=== PATIENT | female | born 1990 ===

== ENCOUNTER 2020-10-07 21:47 | Inpatient (IN) | payer MEDICAID ==
[2020-10-07] MEDS ORDERED: Carboprost Tromethamine 250 MCG/1 ML Amp IM PRN (22:26)
[2020-10-07] MEDS ORDERED: Lidocaine 1% 50 ML MDV INJECT PRN (22:26)
[2020-10-07] MEDS ORDERED: Tranexamic Acid 1,000 MG in Sodium Chloride 0.9% 100 ML IV PRN (22:26)
[2020-10-07] MEDS ORDERED: Sodium Chloride 0.9% 10 ML Syringe FLUSH PRN (22:26)
[2020-10-07] MEDS ORDERED: Sodium Chloride 0.9% 2.5 ML Syringe FLUSH PRN (22:26)
[2020-10-07] MEDS ORDERED: Misoprostol 200 MCG Tab PO PRN (22:26)
[2020-10-07] MEDS ORDERED: Water For Irrigation,Sterile 1,000 ML Container IRR PRN (22:26)
[2020-10-07] MEDS ORDERED: Sodium Chloride 0.9% 10 ML SDV IV PRN (22:26)
[2020-10-07] MEDS ORDERED: Nalbuphine 10 MG/1 ML Vial IVPUSH PRN (22:26)
[2020-10-07] MEDS ORDERED: Butorphanol 1 MG/ML SDV IVPUSH PRN (22:26)
[2020-10-07] MEDS ORDERED: Methylergonovine 0.2 MG/1 ML Amp IM PRN (22:26)
[2020-10-07] MEDS ORDERED: Oxytocin/0.9 % Sodium Chloride 30 UNIT/500 ML BAG IV SCH (22:30)
[2020-10-07] MEDS ORDERED: Lactated Ringers 1,000 ML IV SCH (22:30)
--- NOTE | 2020-10-08 05:36 | PCM.LDHP ---
L&D History of Present Illness - General Date of Service: 10/08/20 Admit Problem/Dx: Patient Status Order with Admit Dx/Problem 10/07/20 21:52 Patient Status [ADT] Routine 10/07/20 22:26 Patient Status [ADT] Routine Admission Diagnosis/Problem Admission Diagnosis/Problem Source of Information: Patient History Limitations: Reports: No Limitations - History of Present Illness Improves with: Reports: None Worsens with: Reports: None Associated Symptoms: Reports: N - Related Data Allergies/Adverse Reactions: Allergies Allergy/AdvReac Type Severity Reaction Status Date / Time Sulfa (Sulfonamide Allergy Rash Verified 10/07/20 21:50 Antibiotics) Past Medical History 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 (See Below) Other OB/BYN History: abnormal pap 09/2019, colposcopy 09/2019, leep 11/2019 - Infectious Disease History Infectious Disease History: Reports: Novel Coronavirus - Past Surgical History HEENT Surgical History: Reports: Oral Surgery Social & Family History - Family History Family Medical History: No Pertinent Family History - Tobacco Use Tobacco Use Status *Q: Never Tobacco User Second Hand Smoke Exposure: No - Recreational Drug Use Recreational Drug Use: No H&P Review of Systems - Review of Systems: Review Of Systems: See Below General: Reports: No Symptoms HEENT: Reports: No Symptoms Pulmonary: Reports: No Symptoms Cardiovascular: Reports: No Symptoms Gastrointestinal: Reports: No Symptoms Genitourinary: Reports: No Symptoms Musculoskeletal: Reports: No Symptoms Skin: Reports: No Symptoms Psychiatric: Reports: No Symptoms Neurological: Reports: No Symptoms Hematologic/Lymphatic: Reports: No Symptoms Immunologic: Reports: No Symptoms L&D Exam - Exam Exam: See Below - Vital Signs Weight: 79.832 kg - OB Specific Contraction Intensity: Moderate Movement: Active Heart Tones: Present Presentation: Vertex - Manley Score Manley Score Cervix Position: Anterior Manley Score Consistency: Soft Manley Score Effacement: >80% Manley Score Dilation: > 5 cm Manley Score 's Station: -2 Manley Score Total: 11 - Exam General: Alert, Oriented HEENT: PERRLA, Conjunctiva Clear, EACs Clear, EOMI, Hearing Intact, Mucosa Moist & [place], Nares Patent, Normal Nasal Septum, Posterior Pharynx Clear, TMs Clear Neck: Supple, Trachea Midline Lungs: Clear to Auscultation, Normal Respiratory Effort Cardiovascular: Regular Rate, Regular Rhythm GI/Abdominal Exam: Normal Bowel Sounds, Soft, Non-Tender, No Organomegaly, No Distention, No Abnormal Bruit, No Mass, Pelvis Stable Rectal Exam: Normal Exam, Normal Rectal Tone Genitourinary: Normal external exam, Normal bimanual exam, Normal speculum exam Back Exam: Normal Inspection, Full Range of Motion Extremities: Normal Inspection, Normal Range of Motion, Non-Tender, No Pedal Edema, Normal Capillary Refill Skin: Warm, Dry, Intact Neurological: Cranial Nerves Intact, Reflexes Equal Bilateral Psychiatric: Alert, Normal Affect, Normal Mood - Patient Data Lab Results Last 24 hrs: Laboratory Results - last 24 hr 10/07/20 10/07/20 Range/Units 23:00 23:00 WBC 16.78 H (4.0-11.0) K/uL RBC 4.54 (4.30-5.90) M/uL Hgb 13.9 (12.0-16.0) g/dL Hct 40.7 (36.0-46.0) % MCV 89.6 (80.0-98.0) fL MCH 30.6 (27.0-32.0) pg MCHC 34.2 (31.0-37.0) g/dL RDW Std Deviation 43.2 (28.0-62.0) fl RDW Coeff of Hoa 13 (11.0-15.0) % Plt Count 229 (150-400) K/uL MPV 11.70 (7.40-12.00) fL Nucleated RBC % 0.0 /100WBC Nucleated RBCs # 0 K/uL Blood Type A POSITIVE Antibody Screen NEGATIVE Result Diagrams: 10/07/20 23:00 Problem List Initiated/Reviewed/Updated: Yes Orders Last 24hrs: Active Orders 24 hr Category Date Time Status Patient Status [ADT] Routine ADT 10/07/20 21:52 Active Patient Status [ADT] Routine ADT 10/07/20 22:26 Active Heart Tones [RC] CONTINUOUS Care 10/07/20 22:26 Active Non Stress Test [RC] PER UNIT ROUTINE Care 10/07/20 21:52 Active Non Stress Test [RC] PER UNIT ROUTINE Care 10/07/20 22:26 Active May Shower [RC] ASDIRECTED Care 10/07/20 22:26 Active Notify Provider [RC] PRN Care 10/07/20 22:26 Active Up ad Lee Ann [RC] ASDIRECTED Care 10/07/20 21:52 Active Up ad Lee Ann [RC] ASDIRECTED Care 10/07/20 22:26 Active Vaginal Exam [RC] Click to Edit Care 10/07/20 21:52 Active Vaginal Exam [RC] PRN Care 10/07/20 22:26 Active Vital Signs [RC] PER UNIT ROUTINE Care 10/07/20 21:52 Active Vital Signs [RC] PER UNIT ROUTINE Care 10/07/20 22:26 Active RPR (SYPHILIS SERO) W/ RFLX [REF] Routine Lab 10/07/20 23:00 Received Butorphanol [Stadol] Med 10/07/20 22:26 Active 1 mg IVPUSH Q1H PRN Carboprost Tromethamine [Hemabate DS] Med 10/07/20 22:26 Active 250 mcg IM ASDIRECTED PRN Lactated Ringers [Ringers, Lactated] 1,000 ml Med 10/07/20 22:30 Active IV ASDIRECTED Lidocaine 1% [Xylocaine 1%] Med 10/07/20 22:26 Active 50 ml INJECT ONETIME PRN Methylergonovine [Methergine] Med 10/07/20 22:26 Active 0.2 mg IM ASDIRECTED PRN Nalbuphine [Nubain] Med 10/07/20 22:26 Active 10 mg IVPUSH Q1H PRN Oxytocin/0.9 % Sodium Chloride [Oxytocin 30 Unit/500 ML Med 10/07/20 22:30 Active -NS] 30 unit in 500 ml IV TITRATE Sodium Chloride 0.9% [Normal Saline] Med 10/07/20 22:26 Active 10 ml IV ASDIRECTED PRN Sodium Chloride 0.9% [Saline Flush] Med 10/07/20 22:26 Active 10 ml FLUSH ASDIRECTED PRN Sodium Chloride 0.9% [Saline Flush] Med 10/07/20 22:26 Active 2.5 ml FLUSH ASDIRECTED PRN Tranexamic Acid [Cyklokapron] 1,000 mg Med 10/07/20 22:26 Active Sodium Chloride 0.9% [Normal Saline] 100 ml IV ONETIME Water For Irrigation,Sterile [Sterile Water for Med 10/07/20 22:26 Active Irrigation] 1,000 ml IRR ASDIRECTED PRN miSOPROStoL [Cytotec] Med 10/07/20 22:26 Active 200 mcg PO ONETIME PRN Scalp Electrode [WOMSER] Per Unit Routine Oth 10/07/20 22:26 Ordered Peripheral IV Insertion Adult [OM.PC] Routine Oth 10/07/20 22:26 Ordered Resuscitation Status Routine Resus Stat 10/07/20 21:51 Ordered Medication Orders Butorphanol Tartrate (Butorphanol 1 Mg/Ml Sdv) 1 mg IVPUSH Q1H PRN PRN Reason: Pain (severe 7-10) Carboprost Tromethamine (Carboprost Tromethamine 250 Mcg/1 Ml Amp) 250 mcg IM ASDIRECTED PRN PRN Reason: Post Hemorrhage Lactated Ringer's (Ringers, Lactated) 1,000 mls @ 150 mls/hr IV ASDIRECTED CEDRICK Last Admin: 10/08/20 02:51 Dose: 150 mls/hr Documented by: VIVIANE Oxytocin/Sodium Chloride (Oxytocin 30 Unit/500 Ml-Ns) 30 unit in 500 mls @ 250 mls/hr IV TITRATE [facility] Tranexamic Acid 1,000 mg/ (Sodium Chloride) 110 mls @ 660 mls/hr IV ONETIME PRN PRN Reason: Bleeding Lidocaine HCl (Lidocaine 1% 50 Ml Mdv) 50 ml INJECT ONETIME PRN PRN Reason: Laceration repair Methylergonovine Maleate (Methylergonovine 0.2 Mg/1 Ml Amp) 0.2 mg IM ASDIRECTED PRN PRN Reason: Post Hemorrhage Misoprostol (Misoprostol 200 Mcg Tab) 200 mcg PO ONETIME PRN PRN Reason: Post Hemorrhage Nalbuphine HCl (Nalbuphine 10 Mg/1 Ml Vial) 10 mg IVPUSH Q1H PRN PRN Reason: Pain (severe 7-10) Sodium Chloride (Sodium Chloride 0.9% 10 Ml Syringe) 10 ml FLUSH ASDIRECTED PRN PRN Reason: Keep Vein Open Sodium Chloride (Sodium Chloride 0.9% 2.5 Ml Syringe) 2.5 ml FLUSH ASDIRECTED PRN PRN Reason: Keep Vein Open Sodium Chloride (Sodium Chloride 0.9% 10 Ml Sdv) 10 ml IV ASDIRECTED PRN PRN Reason: IV Use Sterile Water (Water For Irrigation,Sterile 1,000 Ml Container) 1,000 ml IRR ASDIRECTED PRN PRN Reason: delivery Assessment/Plan Comment:: Termpregnancy in active labor.
[2020-10-08] MEDS ORDERED: Benzocaine/Menthol 20%-0.5% Spray 78 GM Cannister TOP PRN (05:37)
[2020-10-08] MEDS ORDERED: Docusate Sodium 100 MG Cap PO PRN (05:37)
[2020-10-08] MEDS ORDERED: Witch Hazel Medicated Pads 40/Jar TOP PRN (05:37)
[2020-10-08] MEDS ORDERED: Lanolin 100% Cream 7 GM Tube TOP PRN (05:37)
[2020-10-08] MEDS ORDERED: oxyCODONE 5 MG Tab PO PRN (05:37)
[2020-10-08] MEDS ORDERED: Acetaminophen 500 MG Tab PO PRN ×2 (05:37)
[2020-10-08] MEDS ORDERED: Ibuprofen 400 MG Tab PO PRN (05:37)
[2020-10-08] MEDS ORDERED: Ibuprofen 800 MG Tab PO PRN (05:37)
[2020-10-08] MEDS ORDERED: Bisacodyl 10 MG Supp RECTAL PRN (05:37)
--- NOTE | 2020-10-08 11:01 | OR ---
SURGEON: Danie Umana MD DATE OF PROCEDURE: 10/08/2020 Ms. Redding is a 30-year-old patient. She is para 0000 She is 39 plus weeks. She is followed in our clinic mainly by our nurse midwifery. The patient had no care. Her diabetes screen is negative. Her GBS status is negative. She is admitted in active labor. She was 4 cm, complete, vertex, and -2 station at the time of the admission. heart rate was essentially normal and she has an intact membrane. She has continued to progress. She did not have epidural through the process of labor. Since she continued to progress, she had spontaneous rupture of membranes of clear fluid at 9 cm and then she became complete and she pushed for about 40 minutes and she was able to accomplish normal spontaneous vaginal delivery of a female fetus. score reported to be 8 and 9. The weight is not available at the time of this dictation. The placenta delivered spontaneous, complete, and intact. There was first-degree perineal laceration repaired with 3-0 Vicryl after infiltrating the area with copious amount of 1% Xylocaine. Estimated blood loss is 350 to 400 mL. The heart rate was category 1 through the entire process of labor and delivery. There was no complication in the labor and the delivery of this patient. NINFA / [id number] /[id number] MTDD
--- NOTE | 2020-10-09 08:01 | PCM.PNPP ---
- General Info Date of Service: 10/09/20 Functional Status: Reports: Pain Controlled, Tolerating Diet, Ambulating, Urinating - Review of Systems General: Reports: No Symptoms HEENT: Reports: No Symptoms Pulmonary: Reports: No Symptoms Cardiovascular: Reports: No Symptoms Gastrointestinal: Reports: No Symptoms Genitourinary: Reports: No Symptoms Musculoskeletal: Reports: No Symptoms Skin: Reports: No Symptoms Neurological: Reports: No Symptoms Psychiatric: Reports: No Symptoms - General Info Date of Service: 10/09/20 - Patient Data Vital Signs - Most Recent: Last Vital Signs Temp 97.3 F 10/09/20 04:00 Pulse 83 10/09/20 04:00 Resp 16 10/09/20 04:00 BP 103/73 10/09/20 04:00 Pulse Ox 97 10/09/20 04:00 Weight - Most Recent: 176 lb Lab Results - Last 24 Hours: Laboratory Results - last 24 hr 10/09/20 Range/Units 04:59 Hgb 11.7 L (12.0-16.0) g/dL Hct 34.9 L (36.0-46.0) % Med Orders - Current: Current Medications Acetaminophen (Acetaminophen 500 Mg Tab) 500 mg PO Q4H PRN PRN Reason: Pain (mild 1-3) Acetaminophen (Acetaminophen 500 Mg Tab) 1,000 mg PO Q4H PRN PRN Reason: Pain (mild 1-3) Benzocaine/Menthol (Benzocaine/Menthol 20%-0.5% [place] 78 Gm Cannister) 78 gm TOP ASDIRECTED PRN PRN Reason: Perineal Comfort Measure Last Admin: 10/08/20 07:56 Dose: 1 canister Documented by: Bisacodyl (Bisacodyl 10 Mg Supp) 10 mg RECTAL ONETIME PRN PRN Reason: Constipation Butorphanol Tartrate (Butorphanol 1 Mg/Ml Sdv) 1 mg IVPUSH Q1H PRN PRN Reason: Pain (severe 7-10) Carboprost Tromethamine (Carboprost Tromethamine 250 Mcg/1 Ml Amp) 250 mcg IM ASDIRECTED PRN PRN Reason: Post Hemorrhage Docusate Sodium (Docusate Sodium 100 Mg Cap) 100 mg PO Q12H PRN PRN Reason: Constipation Emollient Ointment (Lanolin 100% Cream 7 Gm Tube) 0 gm TOP ASDIRECTED PRN PRN Reason: Sore Nipples Last Admin: 10/08/20 08:58 Dose: 1 tube Documented by: Lactated Ringer's (Ringers, Lactated) 1,000 mls @ 150 mls/hr IV ASDIRECTED CEDRICK Last Admin: 10/08/20 02:51 Dose: 150 mls/hr Documented by: Oxytocin/Sodium Chloride (Oxytocin 30 Unit/500 Ml-Ns) 30 unit in 500 mls @ 250 mls/hr IV TITRATE [facility] Last Admin: 10/08/20 06:55 Dose: 250 mls/hr Documented by: Tranexamic Acid 1,000 mg/ (Sodium Chloride) 110 mls @ 660 mls/hr IV ONETIME PRN PRN Reason: Bleeding Ibuprofen (Ibuprofen 400 Mg Tab) 400 mg PO Q4H PRN PRN Reason: Pain (mild 1-3) Ibuprofen (Ibuprofen 800 Mg Tab) 800 mg PO Q6H PRN PRN Reason: Pain (mild 1-3) Lidocaine HCl (Lidocaine 1% 50 Ml Mdv) 50 ml INJECT ONETIME PRN PRN Reason: Laceration repair Last Admin: 10/08/20 06:56 Dose: 50 ml Documented by: Methylergonovine Maleate (Methylergonovine 0.2 Mg/1 Ml Amp) 0.2 mg IM ASDIRECTED PRN PRN Reason: Post Hemorrhage Misoprostol (Misoprostol 200 Mcg Tab) 200 mcg PO ONETIME PRN PRN Reason: Post Hemorrhage Nalbuphine HCl (Nalbuphine 10 Mg/1 Ml Vial) 10 mg IVPUSH Q1H PRN PRN Reason: Pain (severe 7-10) Oxycodone HCl (Oxycodone 5 Mg Tab) 5 mg PO Q2H PRN PRN Reason: Pain (severe 7-10) Sodium Chloride (Sodium Chloride 0.9% 10 Ml Syringe) 10 ml FLUSH ASDIRECTED PRN PRN Reason: Keep Vein Open Sodium Chloride (Sodium Chloride 0.9% 2.5 Ml Syringe) 2.5 ml FLUSH ASDIRECTED PRN PRN Reason: Keep Vein Open Sodium Chloride (Sodium Chloride 0.9% 10 Ml Sdv) 10 ml IV ASDIRECTED PRN PRN Reason: IV Use Sterile Water (Water For Irrigation,Sterile 1,000 Ml Container) 1,000 ml IRR ASDIRECTED PRN PRN Reason: delivery Witch Maggy (Witch Maggy Medicated Pads 40/Jar) 1 pad TOP ASDIRECTED PRN PRN Reason: comfort care Last Admin: 10/08/20 07:56 Dose: 1 container Documented by: - Infant Interaction Disposition, : [place] in Room with Family Interaction: Holding Infant Feeding: Breastfed Infant; Nursed Well Support Person: Significant Other - Recovery Exam Fundal Tone: Firm Fundal Level: 3 Fingerbreadths Below Umbilicus Fundal Placement: Midline Lochia Amount: Small Lochia Color: Rubra/Red Perineum Description: Intact, Minimal Bruising/Swelling Other Perinuem Description: 1st degree laceration Episiotomy/Laceration: Approximated Bladder Status: Voiding Urinary Elimination: Voided - Exam General: Alert, Oriented, Cooperative, No Acute Distress Lungs: Normal Respiratory Effort Cardiovascular: Regular Rate, Regular Rhythm GI/Abdominal Exam: Soft, Non-Tender Extremities: Normal Inspection, Normal Range of Motion, Normal Capillary Refill Skin: Warm, Dry, Intact Neurological: No New Focal Deficit, Normal Speech, Normal Tone, Strength Equal Bilateral, Sensation Intact Psy/Mental Status: Alert, Normal Affect, Normal Mood - Problem List & Annotations (1) (spontaneous vaginal delivery) SNOMED Code(s): 964060807 Code(s): O80 - ENCOUNTER FOR FULL-TERM UNCOMPLICATED DELIVERY Status: Acute Priority: High Current Visit: Yes - Problem List Review Problem List Initiated/Reviewed/Updated: Yes - Plan Plan:: Termpregnancy in active labor. PP Day 1 A: Doing well; well and bonding well with baby. Ambulating, urinating, and tolerating diet. No concerns/questions at this time. P: Anticipate discharge today. Dr. Umana updated.
== END 2020-10-09 10:52 | disposition home or self-care (01) | DRG 807 ==
LOC: MW.OB 21:47 → MW.OBCHECK 21:47 → MW.OB 22:26 → OBSVTOIN 10-08 06:12 → MW.OB 10-08 10:33
PROVIDERS: ADMIT Obstetrics & Gynecology; ATTEND Obstetrics & Gynecology
PROC: 10E0XZZ Delivery of Products of Conception, External Approach (ICD-10-PCS; principal; 2020-10-08)
PROC: 0HQ9XZZ Repair Perineum Skin, External Approach (ICD-10-PCS; 2020-10-08)
DX: O70.0 First degree perineal laceration during delivery (principal); Z37.0 Single live birth; Z3A.39 39 weeks gestation of pregnancy
CPT/HCPCS: 36415; 59025; 59409; 85014; 85018; 85027; 86592; 86850; 86900; 86901; A9270-GY; J2001; J2590; J7120